=== PATIENT | female | born 1960 | race Caucasian/White ===

== ENCOUNTER → 2018-12-18 | Outpatient (CLI) | payer BC ==
--- NOTE | 2018-12-18 13:14 | Diagnostic Imaging Report ---
INDICATION: Routine screening. COMPARISON: 06/03/2014. TECHNIQUE: 2D and 3D bilateral screening mammography was performed with CAD. FINDINGS: Both breasts remain heterogeneously dense, limiting the sensitivity of mammography. No masses or malignant appearing microcalcifications are seen. A biopsy clip in the lateral right breast is again noted. The axillae are unremarkable. IMPRESSION: No mammographic features suspicious for malignancy are identified. ACR BI-RADS Category 2: Benign findings. Result letter will be mailed to the patient. Note: At least 10% of breast cancer is not imaged by mammography. Dictated by: Dictated on workstation # [id number]
== END ==
LOC: RAD 09:37
PROVIDERS: ATTEND Internal Medicine
DX: Z12.31 Encounter for screening mammogram for malignant neoplasm of breast (principal); Z98.890 Other specified postprocedural states
CPT/HCPCS: 77067

== ENCOUNTER 2019-11-21 09:04 | Emergency (ER) | payer BC, OTHER ==
[~2019-11-21] VITALS: Ht 165.1 cm; Wt 56.6 kg
[2019-11-21 09:36] LABS: BASOPHILS % (AUTO) 0 % (0-10); EOSINOPHILS # (AUTO) 0.1 10^3/uL (0.0-0.3); EOSINOPHILS % (AUTO) 1 % (0-10); HEMATOCRIT 44 % (35-52); HEMOGLOBIN 14.7 G/DL (11.5-16.0); LYMPHOCYTES # (AUTO) 2.3 X 10^3 (1.0-4.0); LYMPHOCYTES % (AUTO) 20 % (12-44); MEAN CORPUSCULAR HEMOGLOBIN 33 PG (25-34); MEAN CORPUSCULAR HGB CONC 34 G/DL (32-36); MEAN CORPUSCULAR VOLUME 97 FL (80-99); MEAN PLATELET VOLUME 9.7 FL (7.4-10.4); MONOCYTES # (AUTO) 0.7 X 10^3 (0.0-1.0); MONOCYTES % (AUTO) 6 % (0-12); NEUTROPHILS # (AUTO) 8.4 X 10^3 (1.8-7.8); NEUTROPHILS % (AUTO) 73 % (42-75); PLATELET COUNT 260 10^3/uL (130-400); RED CELL DISTRIBUTION WIDTH 13.1 % (10.0-14.5); WHITE BLOOD COUNT 11.5 10^3/uL (4.3-11.0)
[2019-11-21 09:44] LABS: ALBUMIN 4.2 GM/DL (3.2-4.5); CHLORIDE 108 MMOL/L (98-107); POTASSIUM 3.7 MMOL/L (3.6-5.0); SODIUM 142 MMOL/L (135-145)
[2019-11-21 09:45] LABS: CALCIUM 9.3 MG/DL (8.5-10.1)
[2019-11-21 09:46] LABS: GLUCOSE 101 MG/DL (70-105)
[2019-11-21 09:47] LABS: TOTAL PROTEIN 6.6 GM/DL (6.4-8.2)
[2019-11-21 09:48] LABS: BILIRUBIN,TOTAL 0.3 MG/DL (0.1-1.0); CARBON DIOXIDE 24 MMOL/L (21-32)
[2019-11-21 09:50] LABS: ALKALINE PHOSPHATASE 93 U/L (40-136); CREATININE SERUM 0.66 MG/DL (0.60-1.30); GFR ESTIMATED > 60
--- NOTE | 2019-11-21 09:50 | Diagnostic Imaging Report ---
PROCEDURE: CT head wo r/o stroke. TECHNIQUE: Multiple contiguous axial images were obtained through the brain without the use of intravenous contrast. Auto Exposure Controls were utilized during the CT exam to meet ALARA standards for radiation dose reduction. INDICATION: Slurred speech. Weakness. Memory issues. Concern for stroke. COMPARISON: None. FINDINGS: No large acute territorial ischemia, mass, or hemorrhage. No midline shift or mass effect. The ventricles, cortical sulci, and basilar cisterns are patent and unremarkable. The calvarium is intact. The visualized paranasal sinuses are clear. IMPRESSION: 1. No large acute territorial ischemia, mass, or hemorrhage. Dictated by: Dictated on workstation # [id number]
[2019-11-21 09:51] LABS: BUN/CREATININE RATIO 17
[2019-11-21 09:53] LABS: ALANINE AMINOTRANSFERASE 15 U/L (0-55)
--- NOTE | 2019-11-21 09:58 | Diagnostic Imaging Report ---
CHEST 1 VIEW, AP/PA ONLY Indication: Slurred speech and weakness Comparison: None available. Findings: No focal airspace disease in the visualized lungs. Please note that the posterior lower lobes are poorly evaluated by portable radiography. No pleural effusion or pneumothorax. Normal cardiomediastinal silhouette. Impression: 1. No acute cardiopulmonary process by portable radiography. Dictated by: Dictated on workstation # [id number]
[2019-11-21 10:01] LABS: FIBRIN DEGRADATION PRODUCTS < 0.27 UG/ML (0.00-0.49); INR 0.9 (0.8-1.4); PARTIAL THROMBOPLASTIN TIME 29 SEC (24-35); PROTHROMBIN TIME PATIENT 12.5 SEC (12.2-14.7)
[2019-11-21 10:56] LABS: BILIRUBIN,URINE NEGATIVE (NEGATIVE); CLARITY,URINE CLEAR; COLOR,URINE YELLOW; GLUCOSE, URINE (UA) NEGATIVE (NEGATIVE); KETONES,URINE NEGATIVE (NEGATIVE); LEUKOCYTE ESTERASE ,URINE NEGATIVE (NEGATIVE); NITRITE,URINE NEGATIVE (NEGATIVE); PROTEIN,URINE NEGATIVE (NEGATIVE)
[2019-11-21] MEDS ORDERED: LACTATED RINGERS 1,000 ML IV ONE (11:01)
[2019-11-21 11:11] LABS: BACTERIA,URINE NEGATIVE /HPF; SQUAMOUS EPITHELIAL CELL,UR 0-2 /HPF
--- NOTE | 2019-11-21 11:37 | ED General ---
General Chief Complaint: Neuro-Stroke Like Symptoms Stated Complaint: BLURRED VISION;MEMORY LOSS Nursing Triage Note: pt amb to rm 2 with complaint of blurred vision, not walking straight and feeling exhausted. pt states she woke up with symptoms this morning, est wake up time was 0700. Nursing Sepsis Screen: No Definite Risk Source of Information: Patient Exam Limitations: No Limitations History of Present Illness Date Seen by Provider: November 21, 2019 Time Seen by Provider: 10:30 Initial Comments Here with report of waking up this morning just not feeling well. Feels a little dizzy and exhausted. Last known well time last night. Onset this morning when she woke up at 7 AM. Denies focal weakness, facial droop, slurred speech or problems swallowing. Just states that she feels weak. Denies fevers, chills, nausea, vomiting or diarrhea. No contact with a value with known COVID. Patient has not traveled. Has no sick contacts. Timing/Duration: 4-6 Hours Severity: Moderate Associated Systoms: No Chest Pain, No Cough, No Diaphoresis, No Fever/Chills, No Headaches; Malaise; No Nausea/Vomiting, No Rash, No Shortness of Air, No Syncope; Weakness Allergies and Home Medications Allergies Coded Allergies: No Known Drug Allergies (Unverified , 11/21/19) Patient Home Medication List Home Medication List Reviewed: Yes Review of Systems Review of Systems Constitutional: see HPI; No chills, No fever EENTM: no symptoms reported Respiratory: no symptoms reported Cardiovascular: no symptoms reported Gastrointestinal: no symptoms reported Musculoskeletal: no symptoms reported Skin: no symptoms reported Psychiatric/Neurological: See HPI All Other Systems Reviewed Negative Unless Noted: Yes Past Tudhfko-Mqxxpp-Llhufp Hx Past Med/Social Hx: Reviewed Nursing Past Med/Soc Hx Patient Social History Alcohol Use: Denies Use Recreational Drug Use: No Smoking Status: Current Everyday Smoker Type Used: Cigarettes Recent Foreign Travel: No Contact w/Someone Who Travel: No Recent Infectious Disease Expo: No Recent Hopitalizations: No Immunizations Up To Date Tetanus Booster (TDap): Unknown PED Vaccines UTD: Yes Seasonal Allergies Seasonal Allergies: No Past Medical History Surgeries: Yes Section Respiratory: No Cardiac: No Neurological: No Genitourinary: No Gastrointestinal: No Musculoskeletal: No Endocrine: No HEENT: No Cancer: No Psychosocial: No Integumentary: No Blood Disorders: No Family Medical History Reviewed Nursing Family Hx No Pertinent Family Hx Physical Exam Vital Signs Vital Signs - First Documented 11/21/19 09:05 Temp 36.4 Pulse 75 Resp 16 B/P (MAP) 132/71 (91) Pulse Ox 98 O2 Delivery Room Air Capillary Refill : Less Than 3 Seconds Height, Weight, BMI Height: '" Weight: lbs. oz. kg; 20.00 BMI Method: General Appearance: No Apparent Distress, WD/WN HEENT: PERRL/EOMI, Pharynx Normal Neck: Non Tender, Supple Respiratory: Lungs Clear, Normal Breath Sounds Cardiovascular: Regular Rate, Rhythm, No Murmur Gastrointestinal: Non Tender, Soft Back: Normal Inspection, No CVA Tenderness, No Vertebral Tenderness Extremity: Normal Capillary Refill, Normal Inspection, Normal Range of Motion, Non Tender, No Calf Tenderness Neurologic/Psychiatric: Alert, Oriented x3, No Motor/Sensory Deficits, Normal Mood/Affect, jewel stringer II-XII Norm as Tested Skin: Normal Color, Warm/Dry Progress/Results/Core Measures Suspected Sepsis Recent Fever Within 48 Hours: No Infection Criteria Present: None New/Unexplained Altered Menta: No Sepsis Screen: No Definite Risk SIRS Temperature: Pulse: 75 Respiratory Rate: 16 Laboratory Tests 11/21/19 09:20: White Blood Count 11.5H Blood Pressure 132 /71 Mean: 91 Laboratory Tests 11/21/19 09:20: Creatinine 0.66, INR Comment 0.9, Platelet Count 260, Total Bilirubin 0.3 Results/Orders Lab Results Laboratory Tests Test 11/21/19 09:17 11/21/19 09:20 11/21/19 10:48 Range/Units Glucometer 100 70-110 MG/DL White Blood Count 11.5 H 4.3-11.0 10^3/uL Red Blood Count 4.52 4.35-5.85 10^6/uL Hemoglobin 14.7 11.5-16.0 G/DL Hematocrit 44 35-52 % Mean Corpuscular Volume 97 80-99 FL Mean Corpuscular Hemoglobin 33 25-34 PG Mean Corpuscular Hemoglobin Concent 34 32-36 G/DL Red Cell Distribution Width 13.1 10.0-14.5 % Platelet Count 260 130-400 10^3/uL Mean Platelet Volume 9.7 7.4-10.4 FL Neutrophils (%) (Auto) 73 42-75 % Lymphocytes (%) (Auto) 20 12-44 % Monocytes (%) (Auto) 6 0-12 % Eosinophils (%) (Auto) 1 0-10 % Basophils (%) (Auto) 0 0-10 % Neutrophils # (Auto) 8.4 H 1.8-7.8 X 10^3 Lymphocytes # (Auto) 2.3 1.0-4.0 X 10^3 Monocytes # (Auto) 0.7 0.0-1.0 X 10^3 Eosinophils # (Auto) 0.1 0.0-0.3 10^3/uL Basophils # (Auto) 0.0 0.0-0.1 10^3/uL Prothrombin Time 12.5 12.2-14.7 SEC INR Comment 0.9 0.8-1.4 Activated Partial Thromboplast Time 29 24-35 SEC D-Dimer < 0.27 0.00-0.49 UG/ML Sodium Level 142 135-145 MMOL/L Potassium Level 3.7 3.6-5.0 MMOL/L Chloride Level 108 H 98-107 MMOL/L Carbon Dioxide Level 24 21-32 MMOL/L Anion Gap 10 5-14 MMOL/L Blood Urea Nitrogen 11 7-18 MG/DL Creatinine 0.66 0.60-1.30 MG/DL Estimat Glomerular Filtration Rate > 60 BUN/Creatinine Ratio 17 Glucose Level 101 70-105 MG/DL Calcium Level 9.3 8.5-10.1 MG/DL Corrected Calcium 9.1 8.5-10.1 MG/DL Total Bilirubin 0.3 0.1-1.0 MG/DL Aspartate Amino Transf (AST/SGOT) 15 5-34 U/L Alanine Aminotransferase (ALT/SGPT) 15 0-55 U/L Alkaline Phosphatase 93 40-136 U/L Troponin I < 0.028 <0.028 NG/ML Total Protein 6.6 6.4-8.2 GM/DL Albumin 4.2 3.2-4.5 GM/DL TSH [place] Testing 0.87 0.35-4.94 UIU/ML Urine Color YELLOW Urine Clarity CLEAR Urine pH 6.0 5-9 Urine Specific [place] 1.025 H 1.016-1.022 Urine Protein NEGATIVE NEGATIVE Urine Glucose (UA) NEGATIVE NEGATIVE Urine Ketones NEGATIVE NEGATIVE Urine Nitrite NEGATIVE NEGATIVE Urine Bilirubin NEGATIVE NEGATIVE Urine Urobilinogen 0.2 < = 1.0 MG/DL Urine Leukocyte Esterase NEGATIVE NEGATIVE Urine RBC (Auto) NEGATIVE NEGATIVE Urine RBC NONE /HPF Urine WBC NONE /HPF Urine Squamous Epithelial Cells 0-2 /HPF Urine Crystals NONE /LPF Urine Bacteria NEGATIVE /HPF Urine Casts NONE /LPF Urine Mucus NEGATIVE /LPF Urine Culture Indicated NO My Orders Orders - HERMES FORD MD Cbc With Automated Diff (11/21/19:30) Protime With Inr (11/21/19:30) Partial Thromboplastin Time (11/21/19:30) Comprehensive Metabolic Panel (11/21/19:30) Fibrin Degradation Products (11/21/19:30) Troponin I (11/21/19:) Ua Culture If Indicated (11/21/19:30) Chest 1 View, Ap/Pa Only (11/21/19:30) Ekg Tracing (11/21/19:30) Nothing By Mouth (11/21/19 Lunch) Accucheck Stat ONCE (11/21/19:30) Ed Iv/Invasive Line Start (11/21/19:30) Vital Signs Stroke Patient Q15M (11/21/19 09:30) Ct Head Wo-R/O Stroke (11/21/19:30) O2 (11/21/19:30) Intake & Output 06,14,22 (11/21/19:30) Monitor-Rhythm Ecg Trace Only (11/21/19:30) Dysphagia Screening Tool (11/21/19:30) Lipid Panel (11/22/19 06:00) Thyroid Analyzer (11/21/19 10:45) Lactated Ringers (Lr 1000 Ml Iv Solution (11/21/19 11:01) Medications Given in ED Current Medications Medications Dose Ordered Sig/Edouard Route Start Time Stop Time Status Last Admin Dose Admin Lactated Ringer's 1,000 ml @ 0 mls/hr Q0M ONCE IV 11/21/19 11:01 11/21/19 11:02 DC 11/21/19 11:24 0 MLS/HR Vital Signs/I&O 11/21/19 09:05 Temp 36.4 Pulse 75 Resp 16 B/P (MAP) 132/71 (91) Pulse Ox 98 O2 Delivery Room Air Capillary Refill : Less Than 3 Seconds Blood Pressure Mean: 91 Point of Care Testing Finger Stick Blood Glucose: 100 Progress Note : Progress Note Seen and evaluated. The, labs, chest x-ray, CT head ordered. Strep screen done by nursing is 0. Dysphasia screen past. Initial evaluation negative pending UA. Ordered thyroid studies and LR 1 L bolus. Monitor patient. 1137: No acute findings. Patient reassured. Discharged home with return precautions. Patient verbalize understanding instructions and agreement with plan. Diagnostic Imaging Diagonstic Imaging: Xray Plain Films/CT/US/NM/MRI: chest Comments [facility], [place] NAME: LYDIA DEE [facility] REC#: [id number] PT STATUS: REG ER : 1960 PHYSICIAN: HERMES FORD MD ADMIT DATE: 11/21/19/ER Signed Date of Exam:11/21/19 CHEST 1 VIEW, AP/PA ONLY CHEST 1 VIEW, AP/PA ONLY Indication: Slurred speech and weakness Comparison: None available. Findings: No focal airspace disease in the visualized lungs. Please note that the posterior lower lobes are poorly evaluated by portable radiography. No pleural effusion or pneumothorax. Normal cardiomediastinal silhouette. Impression: 1. No acute cardiopulmonary process by portable radiography. Dictated by: Dictated on workstation # [id number] Dict: 11/21/19 0956 Trans: 11/21/19 0957 [facility] [id number] Interpreted by: DIVYA GREY MD Electronically signed by: DIVYA GREY MD 11/21/19 0957 Diagonstic Imaging: CT Plain Films/CT/US/NM/MRI: head Comments [facility], [place] NAME: LYDIA DEE [facility] REC#: [id number] PT STATUS: REG ER : 1960 PHYSICIAN: HERMES FORD MD ADMIT DATE: 11/21/19/ER Signed Date of Exam:11/21/19 CT HEAD WO-R/O STROKE PROCEDURE: CT head wo r/o stroke. TECHNIQUE: Multiple contiguous axial images were obtained through the brain without the use of intravenous contrast. Auto Exposure Controls were utilized during the CT exam to meet ALARA standards for radiation dose reduction. INDICATION: Slurred speech. Weakness. Memory issues. Concern for stroke. COMPARISON: None. FINDINGS: No large acute territorial ischemia, mass, or hemorrhage. No midline shift or mass effect. The ventricles, cortical sulci, and basilar cisterns are patent and unremarkable. The calvarium is intact. The visualized paranasal sinuses are clear. IMPRESSION: 1. No large acute territorial ischemia, mass, or hemorrhage. Dictated by: Dictated on workstation # [id number] Dict: 11/21/19 0948 Trans: 11/21/19 1013 [id number] Interpreted by: BELKYS ALBA DO Electronically signed by: BELKYS ALBA DO 11/21/19 1013 Departure Impression Primary Impression: Dizziness Additional Impression: Dehydration Disposition: 01 HOME, SELF-CARE Condition: Improved Departure-Patient Inst. Decision time for Depature: 11:39 Referrals: NO,LOCAL PHYSICIAN (PCP) Primary Care Physician Patient Instructions: Dizziness, Nonvertigo, (DC), Dehydration, Adult (DC) Add. Discharge Instructions: All discharge instructions reviewed with patient and/or family. Voiced understanding. Drink plenty of fluids and eat a normal diet. Rest today. Follow-up with your Dr. in one to 2 days for recheck and further evaluation. Return for increasing weakness, shortness of breath, fever, chills, body aches, breathing problems, difficulty with walking or going to the bathroom or other concerns as needed. HERMES FORD MD November 21, 2019 11:37
[2019-11-21 11:52] VITALS: BP 128/70
== END 2019-11-21 11:52 | disposition home or self-care (01) ==
LOC: EDUNIT# 09:04 → ER 09:06
DX: E86.0 Dehydration (principal); F17.210 Nicotine dependence, cigarettes, uncomplicated
CPT/HCPCS: 36415; 70450; 71045; 80053; 81000; 82962; 84443; 84484; 85025; 85379; 85610; 85730; 93005; 93041

== ENCOUNTER → 2021-06-04 | Outpatient (CLI) | payer BC ==
--- NOTE | 2021-06-04 15:59 | Diagnostic Imaging Report ---
INDICATION: Routine screening. Comparison is made with prior mammogram of 12/18/2018. 2-D and 3-D bilateral screening mammography was performed with CAD. Both breasts are heterogeneously dense, limiting the sensitivity of mammography. The parenchymal pattern is stable. Biopsy clip in the outer right breast is again noted. No mass or malignant-appearing microcalcifications are seen. Axillae are unremarkable. IMPRESSION: BI-RADS Category 2 No mammographic features suspicious for malignancy are identified. ACR BI-RADS Category 2: Benign findings. Result letter will be mailed to the patient. Note: At least 10% of breast cancer is not imaged by mammography. Dictated by: Dictated on workstation # [id number]
== END ==
LOC: RAD 14:19
PROVIDERS: ATTEND Family Medicine
DX: Z12.31 Encounter for screening mammogram for malignant neoplasm of breast (principal)
CPT/HCPCS: 77063; 77067

== ENCOUNTER 2021-06-16 05:35 | Outpatient (CLI) | payer BC ==
[~2021-06-16] VITALS: Ht 167.6 cm; Wt 59.9 kg
== END 2021-06-16 13:45 | disposition home or self-care (01) ==
LOC: PREOP 05:35
PROVIDERS: ATTEND Internal Medicine
DX: Z01.818 Encounter for other preprocedural examination (principal)

== ENCOUNTER 2021-06-18 09:02 | Day surgery (SDC) | payer BC ==
--- NOTE | 2021-06-15 16:07 | HISTORY AND PHYSICAL ---
DATE OF SERVICE: COLONOSCOPY HISTORY AND PHYSICAL HISTORY OF PRESENT ILLNESS: The patient is a 60-year-old white female, referred for her first screening colonoscopy. She is deemed to be of average risk as she is not aware of any family history for colon cancer and she denies any melena or bright red blood per rectum, change in bowel habits or abdominal pain. She states that she feels well. She does have a 52-ykqv-munx smoking history and continues to smoke about half a pack of cigarettes per day. PAST SURGICAL HISTORY: She has had 3 C-sections, followed by a tubal ligation. PAST MEDICAL HISTORY: Significant for hypertension with no known history of vascular disease. FAMILY HISTORY: Her mother is living at the age of 84 with no health problems. Father at age 79 secondary to myelofibrosis. She has one living brother, age 58 and a living sister 64. No reported health problems. She is not aware of any family history for colon cancer or polyposis. SOCIAL HISTORY: She works at [employer] with no past significant alcohol history and a 20-tgtk-hnbr smoking history. REVIEW OF SYSTEMS: CONSTITUTIONAL: Denies night sweats, chills or fever. GASTROINTESTINAL: As noted in the HPI. PULMONARY: Denies cough, wheezing or shortness of breath. CARDIOVASCULAR: Denies chest pain, orthopnea, PND, pedal edema or syncope. PHYSICAL EXAMINATION: GENERAL: Reveals a pleasant white female, appears to be in no acute distress. VITAL SIGNS: Weight 147 pounds, blood pressure 120/68. HEENT: Unremarkable. Sclerae nonicteric. CHEST: Clear. CARDIOVASCULAR: Reveals a regular rate and rhythm without murmur, S3 or S4. ABDOMEN: Soft, supple without mass, organomegaly or tenderness. EXTREMITIES: Reveal no cyanosis, clubbing or edema. ASSESSMENT AND PLAN: The patient is being set up for her first screening colonoscopy, deemed to be of average risk. I thank you for the referral of this pleasant lady. Prep instructions with Suprep kit were given and questions were answered. Electronic medical record reviewed. Job ID: [id number] DocumentID: [id number] Dictated Date: 06/15/2021 08:28:41 Bellows Filler Date: 06/15/2021 16:06:44 Dictated By: SUNNY ROMAN MD
[~2021-06-18] VITALS: Ht 167.6 cm; Wt 59.9 kg
[2021-06-18] VITALS (7 sets, daily range): BP systolic 77–120; BP diastolic 54–71
--- NOTE | 2021-06-18 09:08 | Pre-Op Note & Conscious Sedat ---
Pre-Operative Progress Note H&P Reviewed The H&P was reviewed, patient examined and no changes noted. Date H&P Reviewed: Jun 18, 2021 Time H&P Reviewed: 09:08 Conscious Sedation Pre-Proced Time 09:08 ASA Score 2 For ASA 3 and 4: Consider anesthesia and medical clearance. Also, for patients with a history of failed moderate sedation consider anesthesia. Airway Lungs Heart ASA score ASA 1: a normal healthy patient ASA 2: a patient with a mild systemic disease (mid diabetes, controlled hypertension, obesity ASA 3: a patient with a severe systemic disease that limits activity (angina, COPD, prior Myocardial infarction) ASA 4: a patient with an incapacitating disease that is a constant threat to life (CHF, renal failure) ASA 5: a moribund patient not expected to survive 24 hrs. (ruptured aneurysm) ASA 6: a declared brain- patient whose organs are being harvested. For emergent operations, add the letter E after the classification Mallampati Classification Grade 2 Sedation Plan Analgesia, Amnesia, Plan communicated to team members, Discussed options with patient/fam, Discussed risks with patient/fam The patient is an appropriate candidate to undergo the planned procedure, sedation, and anesthesia. The patient immediately re-assessed prior to indication. SUNNY ROMAN MD Jun 18, 2021 09:08
[2021-06-18] MEDS ORDERED: LACTATED RINGERS 1,000 ML IV ONE (09:09)
[2021-06-18] MEDS ORDERED: LACTATED RINGERS 1,000 ML IV STA (09:15)
[2021-06-18] MEDS ORDERED: LIDOCAINE JELLY 2% 6 ML SYRINGE MM PRN (09:15)
[2021-06-18] MEDS ORDERED: PROPOFOL INJECTION 50 ML IV ONE (10:38)
[2021-06-18] MEDS ORDERED: MIDAZOLAM 2 MG/2 ML (VERSED) VIAL ONE (10:38)
--- NOTE | 2021-06-18 12:22 | Anesthesia-General Post-Op ---
MAC Patient Condition Mental Status/LOC: Same as Preop Cardiovascular: Satisfactory Nausea/Vomiting: Absent Respiratory: Satisfactory Pain: Controlled Complications: Absent Post Op Complications Complications None Follow Up Care/Instructions Patient Instructions None needed. Anesthesiology Discharge Order Discharge Order Patient is doing well, no complaints, stable vital signs, no apparent adverse anesthesia problems. No complications reported per nursing. USMAN CALDWELL CRNA Jun 18, 2021 12:22
--- NOTE | 2021-06-18 16:06 | OPERATIVE REPORT ---
DATE OF SERVICE: COLONOSCOPY SUMMARY INDICATION FOR THE PROCEDURE: Screening colonoscopy. The patient was placed in the left lateral decubitus position. Prior to undergoing colonoscopy, digital rectal evaluation was performed. Anal sphincter tone was normal and the perianal reflexes intact. No abnormalities were noted on digital inspection of anal canal or distal rectal vault. The colonoscope was inserted into the rectum and under direct visualization advanced to cecum. The cecum was identified by identification of the ileocecal valve and cecal strap. Photographic documentation was obtained. Careful inspection was made as colonoscope withdrawn. Quality of prep was good. FINDINGS: There was no evidence for internal or external hemorrhoids and the rectum other than some telangiectatic blood vessels in the distal anal canal was unremarkable. Several small sigmoid diverticulum were present without evidence for diverticulitis. No other sigmoid colonic abnormalities were appreciated. The descending colon was unremarkable. Present at the splenic flexure was a lobular 8 x 10 mm sessile polyp without evidence for ulceration with uniform flesh colored appearance. It was photographed, then biopsied in 2 locations and cauterized with no subsequent blood loss with submission for histopathology. The transverse colon, hepatic flexure, ascending colon, and cecum were unremarkable. ASSESSMENT: 1. Lobulated adenomatous appearing polyp was noted in the splenic flexure, 8 x 10 mm in size, will await histopathology report with likely no longer than a 3-year surveillance interval. Several small sigmoid diverticulum were present with an otherwise unremarkable colonoscopy to the cecum. Job ID: [id number] DocumentID: [id number] Dictated Date: 06/18/2021 11:08:42 Delivery Driver Assistant Date: 06/18/2021 16:05:50 Dictated By: SUNNY ROMAN MD
== END 2021-06-18 12:05 | disposition home or self-care (01) ==
LOC: ENDO 09:02
PROVIDERS: ATTEND Internal Medicine
DX: Z12.11 Encounter for screening for malignant neoplasm of colon (principal); K63.5 Polyp of colon; K57.30 Diverticulosis of large intestine without perforation or abscess without bleeding; I10 Essential (primary) hypertension; F17.210 Nicotine dependence, cigarettes, uncomplicated; Z79.899 Other long term (current) drug therapy
CPT/HCPCS: 88305

== ENCOUNTER 2021-10-21 17:55 | Emergency (ER) | payer BC ==
[~2021-10-21] VITALS: Ht 167 cm; Wt 63.0 kg
[2021-10-21] MEDS ORDERED: ANTACID SUSP 30 ML UDC (MYLANTA) PO ONE (18:15)
[2021-10-21] MEDS ORDERED: LIDOCAINE 2% VISCOUS 15 ML UDC PO ONE (18:15)
[2021-10-21] MEDS ORDERED: ONDANSETRON 4 MG/2 ML (SDV) Z0FRAN IVP ONE (18:15)
[2021-10-21] MEDS ORDERED: ASPIRIN 81 MG CHEW (CHILDREN'S ASA) PO ONE (18:15)
--- NOTE | 2021-10-21 18:20 | ED Cardiac General ---
History of Present Illness General Chief Complaint: Cardiac/General Problems Stated Complaint: INDIGESTION,N, HIGH HEART RATE Nursing Triage Note: PT STATES THAT SHE DOESN'T FEEL RIGHT AND HAS A HIGH HEART RATE, 95 AT TRIAGE. CHEST HEAVINESS IN CENTER Source: patient Exam Limitations: no limitations History of Present Illness Date Seen by Provider: Oct 21, 2021 Time Seen by Provider: 18:17 Initial Comments To ER with reports of sudden onset of indigestion, nausea, high heart rate and "feeling like something is wrong". This began suddenly just prior to arrival here at about 545. No shortness of breath. She has never had this happen before. She does have high cholesterol and was told by primary care to start taking some krill oil. She is not diabetic. She does have hypertension. No history of cardiac disease personally or in the family. She does smoke about 1/2 pack of cigarettes per day. This began while at rest. Timing/Duration: 1-3 hours Severity: moderate Activities at Onset: none NTG SL VP PROJECT: No ASA po VP PROJECT: No Allergies and Home Medications Allergies Coded Allergies: No Known Drug Allergies (Verified , 06/18/21) Patient Home Medication List Home Medication List Reviewed: Yes No Active Prescriptions or Reported Meds Review of Systems Review of Systems Constitutional: see HPI; No diaphoresis, No dizziness EENTM: No Symptoms Reported Respiratory: No Symptoms Reported; Denies Cough, Denies Orthopnea, Denies Shortness of Air, Denies SOA With Exertion, Denies SOA at Rest Cardiovascular: See HPI, Chest Pain (Heaviness in the lower part of her's chest centrally that she rates at 2 out of 10.) Genitourinary: No Symptoms Reported Musculoskeletal: no symptoms reported Skin: no symptoms reported Psychiatric/Neurological: See HPI, Anxiety Endocrine: No Symptoms Reported Hematologic/Lymphatic: No Symptoms Reported Past Vyejpxz-Smhkhe-Rnewcx Hx Patient Social History Tobacco Use?: Yes Tobacco type used: Cigarettes Smoking Status: Current Everyday Smoker Substance use?: No Alcohol Use?: No Immunizations Up To Date Tetanus Booster (TDap): Unknown PED Vaccines UTD: Yes First/Initial COVID19 Vaccinat: AUGUST 2020 Second COVID19 Vaccination Adolfo: OCTOBER 2020 Third COVID19 Vaccination Date: AUGUST 2020 COVID19 Vaccine Advice Nurse: JOBY Seasonal Allergies Seasonal Allergies: No Past Medical History Surgery/Hospitalization HX: 3 C SECTIONS Surgeries: Yes Section Respiratory: No Cardiac: Yes Hypertension Neurological: No Genitourinary: No Gastrointestinal: No Musculoskeletal: No Endocrine: No HEENT: No Cancer: No Psychosocial: No Integumentary: No Blood Disorders: No Family Medical History No Pertinent Family Hx Physical Exam Vital Signs Vital Signs - First Documented 10/21/21 18:02 Temp 36.7 Pulse 95 Resp 20 B/P (MAP) 162/91 (114) O2 Delivery Room Air Capillary Refill : Less Than 3 Seconds Height, Weight, BMI Height: '" Weight: lbs. oz. kg; 22.00 BMI Method: General Appearance: No Apparent Distress, WD/WN, Anxious, Other (Heart rate is [address] segment changes no ectopy blood pressure 129/87.) HEENT: PERRL/EOMI, TMs Normal Neck: Full Range of Motion, Normal Inspection Respiratory: No Accessory Muscle Use, No Respiratory Distress Cardiovascular: Regular Rate, Rhythm, Normal Peripheral Pulses Gastrointestinal: Normal Bowel Sounds, Non Tender, Soft Extremity: Normal Capillary Refill, Normal Inspection Neurologic/Psychiatric: Alert, Oriented x3 Skin: Normal Color, Warm/Dry Progress/Results/Core Measures Results/Orders Lab Results Laboratory Tests Test 10/21/21 18:00 Range/Units White Blood Count 10.0 4.3-11.0 10^3/uL Red Blood Count 4.54 3.80-5.11 10^6/uL Hemoglobin 15.0 11.5-16.0 g/dL Hematocrit 44 35-52 % Mean Corpuscular Volume 96 80-99 fL Mean Corpuscular Hemoglobin 33 25-34 pg Mean Corpuscular Hemoglobin Concent 34 32-36 g/dL Red Cell Distribution Width 12.2 10.0-14.5 % Platelet Count 275 130-400 10^3/uL Mean Platelet Volume 9.9 9.0-12.2 fL Immature Granulocyte % (Auto) 0 % Neutrophils (%) (Auto) 53 42-75 % Lymphocytes (%) (Auto) 39 12-44 % Monocytes (%) (Auto) 6 0-12 % Eosinophils (%) (Auto) 2 0-10 % Basophils (%) (Auto) 1 0-10 % Neutrophils # (Auto) 5.3 1.8-7.8 10^3/uL Lymphocytes # (Auto) 3.9 1.0-4.0 10^3/uL Monocytes # (Auto) 0.6 0.0-1.0 10^3/uL Eosinophils # (Auto) 0.2 0.0-0.3 10^3/uL Basophils # (Auto) 0.1 0.0-0.1 10^3/uL Immature Granulocyte # (Auto) 0.0 0.0-0.1 10^3/uL Prothrombin Time 12.7 12.2-14.7 SEC INR Comment 0.9 0.8-1.4 Activated Partial Thromboplast Time 30 24-35 SEC D-Dimer 0.22 0.00-0.49 UG/ML Sodium Level 137 135-145 MMOL/L Potassium Level 3.5 L 3.6-5.0 MMOL/L Chloride Level 103 98-107 MMOL/L Carbon Dioxide Level 18 L 21-32 MMOL/L Anion Gap 16 H 5-14 MMOL/L Blood Urea Nitrogen 15 7-18 MG/DL Creatinine 0.74 0.60-1.30 MG/DL Estimat Glomerular Filtration Rate 93 BUN/Creatinine Ratio 20 Glucose Level 148 H 70-105 MG/DL Calcium Level 9.6 8.5-10.1 MG/DL Corrected Calcium 9.3 8.5-10.1 MG/DL Magnesium Level 1.7 1.6-2.4 MG/DL Total Bilirubin 0.3 0.1-1.0 MG/DL Aspartate Amino Transf (AST/SGOT) 13 5-34 U/L Alanine Aminotransferase (ALT/SGPT) 17 0-55 U/L Alkaline Phosphatase 119 40-136 U/L Myoglobin 23.1 10.0-92.0 NG/ML Troponin I < 0.028 <0.028 NG/ML B-Type Natriuretic Peptide 13.7 <100.0 PG/ML Total Protein 6.8 6.4-8.2 GM/DL Albumin 4.4 3.2-4.5 GM/DL Lipase 34 8-78 U/L My Orders Orders - AMANDA GARAY APRN Cbc With Automated Diff (10/21/21 18:14) Magnesium (10/21/21 18:14) Chest 1 View, Ap/Pa Only (10/21/21 18:14) Ekg Tracing (10/21/21 18:14) Comprehensive Metabolic Panel (10/21/21 18:14) Myoglobin Serum (10/21/21 18:14) Protime With Inr (10/21/21 18:14) Partial Thromboplastin Time (10/21/21 18:14) O2 (10/21/21 18:14) Monitor-Rhythm Ecg Trace Only (10/21/21 18:14) Lipid Panel (10/22/21 06:00) Ed Iv/Invasive Line Start (10/21/21 18:14) Bnp [place] (10/21/21 18:14) Fibrin Degradation Products (10/21/21 18:14) Troponin I Giancarlo (10/21/21 18:14) Aspirin Chewable Tablet (Baby Aspirin Ch (10/21/21 18:15) Lipase (10/21/21 18:14) Antacid Suspension (Mylanta Suspension (10/21/21 18:15) Lidocaine 2% Viscous 15 Ml (Xylocaine Vi (10/21/21 18:15) Ondansetron Injection (Zofran Injectio (10/21/21 18:15) Medications Given in ED Current Medications Medications Dose Ordered Sig/Edouard Route Start Time Stop Time Status Last Admin Dose Admin Al Hydrox/Mg Hydrox/Simethicone 30 ml ONCE ONCE PO 10/21/21 18:15 10/21/21 18:17 DC 10/21/21 18:45 30 ML Aspirin 324 mg ONCE ONCE PO 10/21/21 18:15 10/21/21 18:17 DC 10/21/21 18:44 324 MG Lidocaine HCl 15 ml ONCE ONCE PO 10/21/21 18:15 10/21/21 18:17 DC 10/21/21 18:45 15 ML Ondansetron HCl 8 mg ONCE ONCE IVP 10/21/21 18:15 10/21/21 18:17 DC 10/21/21 18:44 8 MG Vital Signs/I&O 10/21/21 18:02 Temp 36.7 Pulse 95 Resp 20 B/P (MAP) 162/91 (114) O2 Delivery Room Air Blood Pressure Mean: 114 Departure Communication (Admissions) 1908- much more calm appearing. Her symptoms are gone after the GI cocktail.advised her we will do a repeat troponin at the 2-hour erik which would be 8 PM. If still asymptomatic And with negative troponin we will discharge home. Impression Primary Impression: Gastroesophageal reflux disease Disposition: HOME, SELF-CARE Condition: Stable Departure-Patient Inst. Decision time for Depature: 19:09 Referrals: EMORY ESPINOZA DO (PCP/Family) Primary Care Physician Scripts No Active Prescriptions or Reported Meds AMANDA GARAY APRN Oct 21, 2021 18:20
[2021-10-21 18:23] LABS: BASOPHILS # (AUTO) 0.1 10^3/uL (0.0-0.1); BASOPHILS % (AUTO) 1 % (0-10); EOSINOPHILS # (AUTO) 0.2 10^3/uL (0.0-0.3); EOSINOPHILS % (AUTO) 2 % (0-10); HEMATOCRIT 44 % (35-52); LYMPHOCYTES # (AUTO) 3.9 10^3/uL (1.0-4.0); LYMPHOCYTES % (AUTO) 39 % (12-44); MEAN CORPUSCULAR HEMOGLOBIN 33 pg (25-34); MEAN CORPUSCULAR HGB CONC 34 g/dL (32-36); MEAN CORPUSCULAR VOLUME 96 fL (80-99); MEAN PLATELET VOLUME 9.9 fL (9.0-12.2); MONOCYTES # (AUTO) 0.6 10^3/uL (0.0-1.0); MONOCYTES % (AUTO) 6 % (0-12); NEUTROPHILS # (AUTO) 5.3 10^3/uL (1.8-7.8); NEUTROPHILS % (AUTO) 53 % (42-75); PLATELET COUNT 275 10^3/uL (130-400)
[2021-10-21 18:27] LABS: ALBUMIN 4.4 GM/DL (3.2-4.5)
[2021-10-21 18:28] LABS: INR 0.9 (0.8-1.4); POTASSIUM 3.5 MMOL/L (3.6-5.0); PROTHROMBIN TIME PATIENT 12.7 SEC (12.2-14.7)
[2021-10-21 18:29] LABS: CALCIUM 9.6 MG/DL (8.5-10.1)
[2021-10-21 18:30] LABS: TOTAL PROTEIN 6.8 GM/DL (6.4-8.2)
[2021-10-21 18:32] LABS: BILIRUBIN,TOTAL 0.3 MG/DL (0.1-1.0)
[2021-10-21 18:34] LABS: CREATININE SERUM 0.74 MG/DL (0.60-1.30)
[2021-10-21 18:36] LABS: MAGNESIUM 1.7 MG/DL (1.6-2.4)
[2021-10-21 18:38] LABS: LIPASE 34 U/L (8-78)
--- NOTE | 2021-10-21 19:31 | Diagnostic Imaging Report ---
INDICATION: Chest pain. COMPARISON: Prior examination from 11/21/2019. FINDINGS: The heart size, mediastinal configuration, and pulmonary vascularity are within normal limits. There is no pleural effusion, pneumothorax, or pneumonia. The osseous structures are unremarkable. IMPRESSION: No acute cardiopulmonary abnormality. Dictated by: Dictated on workstation # [id number]
[2021-10-21 20:51] VITALS: BP 121/77
== END 2021-10-21 20:54 | disposition home or self-care (01) ==
LOC: EDUNIT# 17:55 → ER 17:59
DX: K21.9 Gastro-esophageal reflux disease without esophagitis (principal); I10 Essential (primary) hypertension; E78.00 Pure hypercholesterolemia, unspecified; F17.210 Nicotine dependence, cigarettes, uncomplicated
CPT/HCPCS: 36415; 71045; 80053; 83690; 83735; 83874; 83880; 84484; 85025; 85379; 85610; 85730; 93005

== ENCOUNTER → 2022-06-10 | Outpatient (CLI) | payer BC ==
--- NOTE | 2022-06-10 20:47 | Diagnostic Imaging Report ---
INDICATION: Routine screening. COMPARISON: Prior mammograms from 06/04/2021 and 12/18/2018. EXAMINATION: 2D and 3D bilateral screening mammography was performed with CAD. The current study was also evaluated with a Computer Aided Detection (CAD) system. FINDINGS: Both breasts are heterogeneously dense, limiting the sensitivity of mammography. A biopsy clip in the outer right breast is again noted. No mass or malignant-appearing microcalcifications are seen. Axillae are unremarkable. IMPRESSION: No mammographic features suspicious for malignancy are identified. ACR BI-RADS Category 2: Benign findings. Result letter will be mailed to the patient. Note: At least 10% of breast cancer is not imaged by mammography. Dictated by: Dictated on workstation # [id number]
== END ==
LOC: RAD 14:53
PROVIDERS: ATTEND Family Medicine
DX: Z12.31 Encounter for screening mammogram for malignant neoplasm of breast (principal)
CPT/HCPCS: 77063; 77067